=== PATIENT | female | born 1955 | race Caucasian/White ===

== ENCOUNTER 2016-05-13 09:00 | Emergency (ER) | payer SELFPAY ==
[~2016-05-13] VITALS: Ht 154.9 cm; Wt 68.0 kg
[~2016-05-13 09:00] MED LIST: Z.0.NO CURRENT MEDS
--- NOTE | 2016-05-13 09:29 | PD ---
HPI Chief Complaint: Pain: Acute or Chronic Time Seen by Provider: 09:29 Travel History International Travel<30 days: No Contact w/Intl Traveler<30days: No Traveled to known affect area: No History of Present Illness HPI 60-year-old female presents to the emergency department for evaluation of left arm fracture that occurred on April 24, 2016. Patient states that she went to [facility] on May 04, 2016 and was diagnosed with a left humeral head fracture. She was placed in a sling and swath instructed to follow -up with orthopedist. However, she states she does not have insurance and has been unable to follow up. She went to the [facility] and had another x-ray completed yesterday. She is supposed to call the nurse in charge of the [facility] today for follow-up with orthopedist. Patient denies any new complaints. She has no chronic medical problems and currently takes no medications. 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 Afebrile. SKIN: Warm and dry. HEAD: Normocephalic. Atraumatic. EYES: No scleral icterus. No injection or drainage. NECK: Supple, trachea midline. No JVD or lymphadenopathy. CARDIOVASCULAR: Regular rate and rhythm without murmurs, gallops, or rubs. Left radial pulse 2+. Capillary refill less than 2 seconds to the digits of the left hand. RESPIRATORY: Breath sounds equal bilaterally. No accessory muscle use. Lungs sounds are clear to auscultation. GASTROINTESTINAL: Abdomen soft, non-tender, nondistended. MUSCULOSKELETAL: No cyanosis, or edema. [id number] is noted to left arm. No obvious deformity. Tissues are soft with no evidence of compartment syndrome. Patient has full sensation distal left upper extremity. BACK: Nontender without obvious deformity. No CVA tenderness. Data Data Last Documented VS Vital Signs Date Time Temp Pulse Resp B/P Pulse Ox O2 Delivery O2 Flow Rate FiO2 05/13/16 09:30 97.8 78 15 134/58 98 MDM Medical Decision Making Medical Screen Exam Complete: Yes Emergency Medical Condition: Yes Medical Record Reviewed: Yes Differential Diagnosis Humeral fracture versus medical clearance Narrative Course 60-year-old female presents to the emergency department with a known humeral head fracture of the left arm. She has seen at another hospital and was instructed to follow up with orthopedist outpatient. She is currently being seen at the [facility] in hopes for referral to orthopedist. She denies any new complaints. There is no evidence of compartment syndrome at this time. She had repeat x-ray done yesterday, referred by the [facility]. Patient lives in [place] and does not qualify for financial assistance through [employer] due to living in [place]. I contacted the case therapist on duty, who does not know of programs in [place]. I instructed the patient to follow-up with the special care hospital today as she was instructed. She is return for any worsening symptoms. She agrees with plan. A medical screening exam was performed: At the time of evaluation the presenting medical condition was determined not to be of an emergent nature. The patient was given the option of receiving additional care, but declined. Patient was given options for additional community resources from which to obtain care. The Patient Has Been advised to seek medical attention for their presenting complaint. The patient has been advised to return to the ER at any time if an emergent condition develops. Diagnosis Primary Impression: Encounter for medical screening examination Condition: Stable Michelle Martins May 13, 2016 09:29
[2016-05-13 09:30] VITALS: BP 134/58; PULSE 78; RESP 15; TEMP 97.8; O2SAT 98
== END 2016-05-13 09:35 | disposition left against medical advice (07) ==
LOC: NEPB 09:00
DX: S42.292A Other displaced fracture of upper end of left humerus, initial encounter for closed fracture (principal)
CPT/HCPCS: 99281